=== PATIENT | female | born 1935 | race Caucasian/White ===

== ENCOUNTER 2023-08-22 13:01 | Observation (INO) | payer OTHER ==
[2023-08-22] MEDS ORDERED: fentaNYL 50 mcg/mL 1 mL Vial ONE ×2 (13:53→20:59)
[2023-08-22 13:55] LABS: #Monocytes 0.2 thou/uL (0.11-0.59); %Basophils 0.3 % (0.0-1.0); %Lymphocytes 10.3 % (21.0-51.0); %Monocytes 3.1 % (0.0-10.0); %Neutrophils 85.9 % (42.0-75.0); Hematocrit 35.4 % (36.0-47.0); Hemoglobin 11.5 g/dL (12.0-16.0); Mean Corpuscular HGB CONC 32.5 g/dL (32.0-36.0); Mean Corpuscular Hemoglobin 27.5 pg (27.0-31.0); Mean Corpuscular Volume 84.7 fl (78.0-98.0); Mean Platelet Volume 9.6 fL (7.4-10.4); Platelet Count 150 10x3/uL (130-400); RBC Distribution Width 14.9 % (11.5-14.5); Red Blood Cell (RBC) Count 4.18 mill/uL (4.20-5.40)
[2023-08-22 14:08] LABS: INR-International Normal Ratio 1.3; Prothrombin Time 16.3 sec (12.0-14.7)
[2023-08-22 14:24] LABS: ALT (SGPT) 13 U/L (8-55); AST (SGOT) 17 U/L (5-34); Albumin 4.4 g/dL (3.4-4.8); Alkaline Phosphatase 47 U/L (40-110); Anion Gap 16 mmol/L (10-20); BUN (Urea Nitrogen) 20 mg/dL (9.8-20.1); Bilirubin, Total 0.8 mg/dL (0.2-1.2); Calc. Creatinine Clearance 0 mL/min (70-130); Calcium 9.2 mg/dL (7.8-10.44); Carbon Dioxide 25 mmol/L (23-31); Chloride 105 mmol/L (98-107); Estimated GFR 64; Globulin 2.3 g/dL (2.4-3.5); Glucose 119 mg/dL (83-110); Potassium 3.7 mmol/L (3.5-5.1); Protein, Total 6.7 g/dL (5.8-8.1); Sodium 142 mmol/L (136-145)
[2023-08-22] MEDS ORDERED: Morphine 4 MG/ML VIAL ONE (16:03)
[2023-08-22] MEDS ORDERED: Ondansetron PF 4 MG/2 ML Vial IVP PRN (16:31)
[2023-08-22] MEDS ORDERED: Morphine 2 MG/ML VIAL SLOW IVP PRN (16:31)
[2023-08-22] MEDS ORDERED: traMADol HCl 50 MG TAB PO PRN (16:34)
[2023-08-22] MEDS ORDERED: Succinylcholine 200 MG/10 ml SYRINGE FS ONE (18:29)
[2023-08-22] MEDS ORDERED: Glycopyrrolate 0.2 MG/ML 5 ML SYRINGE ONE (18:29)
[2023-08-22] MEDS ORDERED: Lidocaine 1% PF 5 ML VIAL ONE (18:29)
[2023-08-22] MEDS ORDERED: Rocuronium Bromide 10 MG/ML (10ML VIAL) ONE (18:29)
[2023-08-22] MEDS ORDERED: PROPOFOL 200 MG/20 ML VIAL ONE (18:29)
[2023-08-22] MEDS ORDERED: HYDROmorphone 2 MG/ML VIAL SLOW IVP PRN (18:58)
[2023-08-22] MEDS ORDERED: Ondansetron HCl/PF 4 MG/2 ML Vial IVP PRN (18:58)
[2023-08-22] MEDS ORDERED: Promethazine HCl 25 MG/ML VIAL IM PRN (18:58)
[2023-08-22] MEDS ORDERED: HUMAN PROTHROMBIN COMPLX IV SCH (19:00)
[2023-08-22] MEDS ORDERED: ADMIXTURE FEE IV SCH (19:00)
[2023-08-22] MEDS ORDERED: Labetalol HCl 100 MG/20 ML VIAL ONE (20:18)
[2023-08-22 22:44] VITALS: BMI 29.2
[2023-08-22] MEDS: Famotidine/PF 20 mg/2ml Vial SLOW IVP SCH (22:45)
[2023-08-22] MEDS: Acetaminophen 500 MG TAB PO SCH ×2 (22:45→23:47)
[2023-08-22] MEDS: traMADol HCl 50 MG TAB PO SCH ×2 (22:45→23:47)
[2023-08-22] MEDS: Senokot S 8.6-50 MG TAB PO SCH (22:45)
[2023-08-22] MEDS: Sodium Chloride 0.9% 1,000 ML IV SCH ×2 (22:49→23:44)
[2023-08-23] MEDS: traMADol HCl 50 MG TAB PO SCH (04:59)
[2023-08-23] MEDS: Acetaminophen 500 MG TAB PO SCH (04:59)
[2023-08-23] MEDS: Sodium Chloride 0.9% 1,000 ML IV SCH (08:01)
[2023-08-23] MEDS: Famotidine/PF 20 mg/2ml Vial SLOW IVP SCH (08:08)
[2023-08-23] MEDS: Senokot S 8.6-50 MG TAB PO SCH (08:08)
[2023-08-23] MEDS ORDERED: FLU VACC QS2023(65UP)/MF59C/PF 60 MCG/0.5 ML SYRINGE IM ONE (09:00)
[2023-08-23] MEDS ORDERED: Polyethylene Glycol 3350 17 GM Packet PO SCH (09:00)
[2023-08-23 09:54] VITALS: BP 111/57; TEMP 97.8
== END 2023-08-23 11:30 | disposition home or self-care (01) ==
LOC: ERS 13:01 → SDC 20:12 → SURG A 22:13
PROVIDERS: ADMIT Surgery; ATTEND Surgery
PROC: 0YU50JZ Supplement Right Inguinal Region with Synthetic Substitute, Open Approach (ICD-10-PCS; principal; 2023-08-22)
DX: K40.30 Unilateral inguinal hernia, with obstruction, without gangrene, not specified as recurrent (principal); E03.9 Hypothyroidism, unspecified; Z86.718 Personal history of other venous thrombosis and embolism; Z79.01 Long term (current) use of anticoagulants; Z87.891 Personal history of nicotine dependence
CPT/HCPCS: 49507; 71045; 80053; 83605; 85025; 85610; 93005; A4314; C1781; J3010; J7168; 36415; 96374; 96375; J2270; J2272; J2704; J7050; S0028